=== PATIENT | female | born 1970 | race African-American/Black ===

== ENCOUNTER 2017-07-18 16:57 | Observation (INO) | payer OTHER ==
[~2017-07-18] VITALS: Ht 172.7 cm; Wt 90.7 kg
[2017-07-18] MEDS ORDERED: LORazepam 2MG/ML-1ML VIAL ONE (16:58)
[2017-07-18] MEDS ORDERED: LORazepam 2MG/ML-1ML VIAL IV ONE ×2 (17:15→18:45)
[2017-07-18] MEDS ORDERED: ETOMIDATE (2MG/ML) 20ML VIAL IV ONE (17:16)
[2017-07-18] MEDS ORDERED: ROCURONIUM 10MG/ML 10ML VIAL IV ONE (17:16)
[2017-07-18] MEDS ORDERED: SUCCINYLCHOLINE CHLORIDE 20 MG/ML 10ML VIAL IV ONE ×2 (17:16→18:30)
[2017-07-18] MEDS ORDERED: SODIUM CHLORIDE 0.9% 1,000 ML IVB ONE (17:19)
[2017-07-18] MEDS ORDERED: MIDAZOLAM DRIP 50 mg/50mL 50 ML IV ONE ×2 (17:26→18:12)
[2017-07-18] MEDS ORDERED: MIDAZOLAM HCL 5 MG/ML-1ML VIAL ONE (17:30)
[2017-07-18] MEDS ORDERED: PROPOFOL 100 ML IV ONE (17:43)
[2017-07-18 18:08] LABS: Basophils # (auto) 0.1 uL; Basophils % (auto) 0.5 % (0.0-2.0); Eosinophils # (auto) 0.1 uL; Eosinophils % (auto) 0.6 % (0.0-7.0); Hematocrit 41.6 % (36.0-46.0); Hemoglobin 12.9 g/dL (12.2-16.2); Lymphocytes # (auto) 4.1 uL; Lymphocytes % (auto) 35.2 % (10.0-50.0); Mean Corpuscular Hemoglobin 27.5 pg (28.0-32.0); Mean Corpuscular Hgb Conc. 31.1 g/dL (32.0-36.0); Mean Corpuscular Volume 88.5 fL (80.0-100.0); Monocytes # (auto) 0.7 uL; Monocytes % (auto) 6.2 % (0.0-12.0); Neutrophils # (auto) 6.7 uL; Neutrophils % (auto) 57.5 % (37.0-80.0); Nucleated Red Blood Cells % 0.1 %; Platelet Count (auto) 196 10^3/uL (140-450); Red Cell Distribution Width 14.6 % (11.8-14.3); White Blood Cell 11.7 10^3/uL (4.4-10.8)
[2017-07-18 18:21] LABS: Partial Thromboplastin Time 25.3 sec (22.64-33.71); Prothrombin Time 10.9 sec (9.37-12.3)
[2017-07-18 18:23] LABS: Magnesium 2.2 mg/dL (1.6-2.6)
[2017-07-18 18:26] LABS: Lactic Acid w/Reflex 9.3 mmol/L (0.4-2.0)
[2017-07-18 18:28] LABS: Albumin 4.3 g/dL (3.4-5.0); BUN/Creatinine Ratio 14.5; Bilirubin, Total 0.4 mg/dL (0.2-1.0); Calcium 8.5 mg/dL (8.5-10.1); Potassium 3.7 mmol/L (3.5-5.1)
[2017-07-18] MEDS ORDERED: MIDAZOLAM HCL 5 MG/ML-1ML VIAL IV ONE ×2 (18:30)
[2017-07-18] MEDS ORDERED: SODIUM CHLORIDE 0.9% 1,000 ML IV ONE (18:30)
[2017-07-18] MEDS ORDERED: MIDAZOLAM DRIP 50 mg/50mL 50 ML IV SCH (18:31)
[2017-07-18 18:32] LABS: Allen Test Modified; Base Excess -12.9 mmol/L (-2.0-2.0); Blood 02Sat 97.8 % (96-100); Blood MetHb 0.4 % (0.0-1.5); HCO3 15.1 mmol/L (22-26.0); HHb 2.2 % (0.0-5.0); MODE VENT - A/C; O2Hb 96.4 % (94.0-97.0); PCO2 43.2 mmHg (35.0-45.0); PCO2(T) 43.2 mmHg (35.0-45.0); PO2 146.1 mmHg (80.0-100.0); PO2(T) 146.1 mmHg (80.0-100.0); Sample Type Arterial; pH 7.162 (7.350-7.450)
[2017-07-18] MEDS ORDERED: PROPOFOL 100 ML IV SCH (18:32)
[2017-07-18 18:33] LABS: Urine Bilirubin Negative (Negative); Urine Blood 2+ /uL (Negative); Urine Color Yellow (Yellow); Urine Glucose Normal (Normal); Urine Hyaline Cast MOD /lpf (0 - 2); Urine Ketone Negative (Negative); Urine Mucus FEW (None Seen); Urine Nitrite Negative (Negative); Urine RBC 10 /hpf (0 - 4); Urine Squamous Epithelial Cell FEW /hpf (<5); Urine Urobilinogen Normal (Negative); Urine pH 5.5 (5.0-8.0)
[2017-07-18 18:34] LABS: REFLEX LACTIC ACID YES OR NO YES
[2017-07-18] MEDS ORDERED: LEVETIRACETAM 500 MG/5ML INJ IV ONE (18:36)
[2017-07-18 18:37] VITALS: BP 101/56
[2017-07-18] MEDS ORDERED: LEVETIRACETAM INJ 1,000 MG in SODIUM CHL 0.9% 100 ML IV ONE (18:45)
[2017-07-18] MEDS ORDERED: NOREPINEPHRINE 8 MG/250ML KIT 250 ML IV ONE (18:52)
[2017-07-18 19:28] LABS: Acetaminophen < 2.0 ug/mL (10-30); Salicylate 5.1 mg/dL (2.8-20.0)
== END 2017-07-18 19:07 | disposition short-term general hospital (02) | DRG 947 ==
LOC: ER 16:57 → OVERFLOW 17:21 → ER 19:07
PROVIDERS: ADMIT Family Medicine; ATTEND Family Medicine
DX: R41.82 Altered mental status, unspecified (principal); I63.9 Cerebral infarction, unspecified; I10 Essential (primary) hypertension; F17.200 Nicotine dependence, unspecified, uncomplicated
CPT/HCPCS: 36415; 36600; 70450; 71010; 80053; 80307; 80320; 80329; 81001; 82805; 83605; 83735; 84484; 84702; 85025; 85610; 85730; 87040; 87070; 87086; 87205; 93005; 94002; 96361; 96374; 96375; 96376; 99291; G0378; J0330; J1953; J2060; J2250; J2704

== ENCOUNTER 2024-03-29 12:21 | Emergency (ER) | payer MEDICAID ==
[~2024-03-29] VITALS: Ht 154.9 cm; Wt 96.8 kg
[2024-03-29 13:56] LABS: Basophils # (auto) 0 10 ^3/uL (0-0.2); Eosinophils # (auto) 0 10 ^3/uL (0-0.8); Lymphocytes # (auto) 1.1 10 ^3/uL (0.4-5.4); Monocytes # (auto) 0.2 10 ^3/uL (0-1.3)
[2024-03-29 13:57] LABS: Basophils % (auto) 0.5 % (0.0-2.0); Eosinophils % (auto) 0.7 % (0.0-7.0); Hematocrit 39.2 % (36.0-46.0); Lymphocytes % (auto) 29.7 % (10.0-50.0); Mean Corpuscular Hemoglobin 23.6 pg (28.0-32.0); Mean Corpuscular Hgb Conc. 30.8 g/dL (32.0-36.0); Mean Corpuscular Volume 76.6 fL (80.0-100.0); Monocytes % (auto) 5.9 % (0.0-12.0); Neutrophils # (auto) 2.4 10 ^3/uL (1.6-8.6); Neutrophils % (auto) 63.2 % (37.0-80.0); Nucleated Red Blood Cells % 0.1 %; Red Blood Cells 5.11 10^6/uL (4.0-5.20); Red Cell Distribution Width 18.5 % (11.8-14.3); White Blood Cell 3.8 10^3/uL (4.4-10.8)
[2024-03-29 14:20] LABS: Alanine Aminotransferase 12 U/L (7-40); Albumin 4.1 g/dL (3.2-4.8); Alkaline Phosphatase 65 U/L (46-116); Anion Gap 7 (5-15); Aspartate Aminotransferase 17 U/L (13-40); BUN/Creatinine Ratio 9.3 (10.0-20.0); Bilirubin, Total 0.4 mg/dL (0.2-1.0); Blood Urea Nitrogen 8 mg/dL (9-23); Calcium 9.2 mg/dL (8.5-10.1); Carbon Dioxide 28 mmol/L (20-30); Chloride 105 mmol/L (98-107); Glucose 83 mg/dL (74-106); Potassium 3.3 mmol/L (3.5-5.1); Sodium 140 mmol/L (136-145)
[2024-03-29 14:57] LABS: Magnesium 1.8 mg/dL (1.6-2.6)
[2024-03-29] MEDS: SODIUM CHLORIDE 0.9% 1,000 ML IV ONE ×2 (16:58→20:15)
[2024-03-29] MEDS: ONDANSETRON HCL 4 MG/2 ML VIAL IV ONE (16:58)
[2024-03-29] MEDS: hydrALAZINE HCL 20 MG/ML VL IV ONE (16:58)
[2024-03-29 18:24] VITALS: BP 152/99; PULSE 84; RESP 17; TEMP 98.4; O2SAT 98
[2024-03-29] MEDS: POTASSIUM CHL 20 Meq TABLET PO ONE (18:24)
[2024-03-29 19:33] LABS: Urine Bacteria FEW /hpf (None Seen); Urine Blood Negative /uL (Negative); Urine Clarity Turbid (Clear); Urine Color Yellow (Yellow); Urine Mucus FEW (None Seen); Urine Protein, UAD 1+ (Negative); Urine Urobilinogen 6 mg/dL (Negative); Urine WBC 2 /hpf (0 - 5)
== END 2024-03-29 20:15 | disposition home or self-care (01) ==
LOC: ER 12:21
DX: I10 Essential (primary) hypertension (principal); K59.00 Constipation, unspecified; R11.2 Nausea with vomiting, unspecified; E78.5 Hyperlipidemia, unspecified; F32.9 Major depressive disorder, single episode, unspecified; Z98.890 Other specified postprocedural states; Z79.899 Other long term (current) drug therapy
CPT/HCPCS: 36415; 74176; 80053; 81001; 83605; 83690; 83735; 85025; 93005; 96361; 96374; 96375; 99285; J0360; J2405; J7030

== ENCOUNTER 2024-06-23 10:42 | Inpatient (IN) | payer MEDICAID ==
[~2024-06-23] VITALS: Ht 154.9 cm; Wt 93.3 kg
[2024-06-23] MEDS: SODIUM CHLORIDE 0.9% 1,000 ML IV ONE ×2 (11:00→12:25)
[2024-06-23 11:33] LABS: Basophils # (auto) 0 10 ^3/uL (0-0.2); Eosinophils # (auto) 0 10 ^3/uL (0-0.8); Eosinophils % (auto) 0.2 % (0.0-7.0); Monocytes # (auto) 0.2 10 ^3/uL (0-1.3); Neutrophils # (auto) 2.5 10 ^3/uL (1.6-8.6)
[2024-06-23 11:35] LABS: Basophils % (auto) 0.4 % (0.0-2.0); Hematocrit 38.7 % (36.0-46.0); Hemoglobin 12.4 g/dL (12.2-16.2); Lymphocytes # (auto) 1.3 10 ^3/uL (0.4-5.4); Lymphocytes % (auto) 32.3 % (10.0-50.0); Mean Corpuscular Hemoglobin 23.4 pg (28.0-32.0); Mean Corpuscular Volume 73.3 fL (80.0-100.0); Monocytes % (auto) 5.5 % (0.0-12.0); Neutrophils % (auto) 61.6 % (37.0-80.0); Nucleated Red Blood Cells % 0.2 %; Platelet Count (auto) 215 10^3/uL (140-450); Red Blood Cells 5.28 10^6/uL (4.0-5.20); Red Cell Distribution Width 17.7 % (11.8-14.3)
[2024-06-23 11:40] LABS: Chloride 103 mmol/L (98-107); Sodium 140 mmol/L (136-145)
[2024-06-23 11:41] LABS: Anion Gap 12 (5-15); Carbon Dioxide 25 mmol/L (20-31)
[2024-06-23 11:42] LABS: Calcium 9.4 mg/dL (8.7-10.4)
[2024-06-23 11:46] LABS: BUN/Creatinine Ratio 8.8 (10.0-20.0); Blood Urea Nitrogen 8 mg/dL (9-23); Glucose 90 mg/dL (74-106)
[2024-06-23 11:49] LABS: Potassium 2.2 mmol/L (3.5-5.1)
[2024-06-23] MEDS: ONDANSETRON HCL 4 MG/2 ML VIAL IV ONE (12:00)
[2024-06-23 12:04] VITALS: PULSE 80; RESP 14; O2SAT 99
[2024-06-23] MEDS: hydrALAZINE HCL 20 MG/ML VL IV ONE (12:48)
[2024-06-23] MEDS: POTASSIUM CHL 20MEQ/100ML 100 ML IV SCH (12:55)
[2024-06-23] MEDS ORDERED: MORPHINE SULFATE INJ 2 MG/ml SYRG IV PRN (15:30)
[2024-06-23] MEDS ORDERED: hydrALAZINE HCL 20 MG/ML VL IV PRN (15:30)
[2024-06-23] MEDS ORDERED: SODIUM CHLORIDE 0.9% 1,000 ML IV SCH (15:30)
[2024-06-23] MEDS ORDERED: DOCUSATE SOD 100 MG CAP PO PRN (15:30)
[2024-06-23] MEDS ORDERED: ONDANSETRON HCL 4 MG/2 ML VIAL IV PRN (15:30)
[2024-06-23] MEDS ORDERED: NITROGLYCERIN 0.4 MG SL TAB SL PRN ×2 (15:30→15:45)
[2024-06-23] MEDS ORDERED: METOCLOPRAMIDE HCL 5MG/ml INJ 2ml VIAL IV ONE (15:30)
[2024-06-23] MEDS ORDERED: ENOXAPARIN SOD 40 MG/0.4 ML SYRINGE SC SCH (15:30)
[2024-06-23] MEDS: SODIUM CHLORIDE 0.9% 1,000 ML IV SCH (15:45)
[2024-06-23 15:46] LABS: Urine Bacteria None Seen /hpf (None Seen)
[2024-06-23 15:58] LABS: Magnesium 1.6 mg/dL (1.6-2.6)
[2024-06-23 15:59] LABS: Phosphorus 2.8 mg/dL (2.4-5.1)
[2024-06-23 16:03] LABS: Potassium 2.3 mmol/L (3.5-5.1)
[2024-06-23 16:15] LABS: Amphetamine Screen, Urine Neg (NEGATIVE); Barbiturate Scree,Urine Neg (NEGATIVE)
[2024-06-23 16:16] LABS: Benzodiazephine Screen, Urine Pos (NEGATIVE); Cannabinoid Screen, Urine Pos (NEGATIVE); Cocaine Screen, Urine Neg (NEGATIVE); Opiate Scree,Urine Neg (NEGATIVE); Phencyclidine Screen, Urine Neg (NEGATIVE)
[2024-06-23 16:18] LABS: Urine Blood Negative /uL (Negative); Urine Clarity Clear (Clear); Urine Color Yellow (Yellow); Urine Mucus FEW (None Seen); Urine Protein, UAD 1+ (Negative); Urine Specific Gravity 1.022 (1.001-1.035); Urine Urobilinogen 6 mg/dL (Negative); Urine WBC 1 /hpf (0 - 5); Urine pH 6.5 (5.0-9.0)
[2024-06-23] MEDS: POTASSIUM CHL 20MEQ/100ML 100 ML IV ONE (16:38)
[2024-06-23] MEDS: METOCLOPRAMIDE HCL 5MG/ml INJ 2ml VIAL IV ONE (16:47)
[2024-06-23] MEDS ORDERED: METOCLOPRAMIDE HCL 5MG/ml INJ 2ml VIAL IV SCH (18:00)
[2024-06-23] MEDS: METOCLOPRAMIDE HCL 5MG/ml INJ 2ml VIAL IV SCH (18:57)
[2024-06-23] MEDS: ONDANSETRON HCL 4 MG/2 ML VIAL IV PRN (20:52)
[2024-06-23 22:28] VITALS: PULSE 84; RESP 14; O2SAT 99
[2024-06-24] VITALS (13 sets, daily range): BP systolic 147–179; BP diastolic 83–113; PULSE 68–118; RESP 14–20; TEMP 98–98.9; O2SAT 95–100
[2024-06-24] MEDS: hydrALAZINE HCL 20 MG/ML VL IV PRN (04:30)
[2024-06-24] MEDS ORDERED: ZOFR4T PO (04:32)
[2024-06-24] MEDS ORDERED: [UNRECOGNIZED DRUG - CODE] IV (04:32)
[2024-06-24] MEDS ORDERED: HYDR50TA47 PO (04:32)
[2024-06-24] MEDS ORDERED: OXY5T GT (04:32)
[2024-06-24] MEDS: ENOXAPARIN SOD 40 MG/0.4 ML SYRINGE SC SCH (11:31)
[2024-06-24] MEDS ORDERED: CYCL-611 PO (12:41)
[2024-06-24] MEDS ORDERED: METH-1182 PO (12:41)
[2024-06-24] MEDS ORDERED: OXYC325T14 PO (12:50)
[2024-06-24] MEDS ORDERED: GABA-1250 PO (12:50)
[2024-06-24] MEDS ORDERED: CONJ.6252 PO (12:50)
[2024-06-24] MEDS ORDERED: IBUP-1456 PO (12:50)
[2024-06-24] MEDS ORDERED: NALO1TAB4 PO (12:50)
[2024-06-24] MEDS ORDERED: CITA10TA8 PO (12:50)
[2024-06-24] MEDS ORDERED: DOCU-265 PO (12:50)
[2024-06-24] MEDS ORDERED: NORT50CA57 PO (12:50)
[2024-06-24] MEDS ORDERED: SERT-160 PO (12:50)
[2024-06-24] MEDS ORDERED: ATOR20TA50 PO (12:50)
[2024-06-24] MEDS ORDERED: TOLT2CAP PO (12:50)
[2024-06-24] MEDS ORDERED: ZOLP10TA6 PO (12:50)
[2024-06-24] MEDS ORDERED: AMLO1TAB23 PO (12:50)
[2024-06-24] MEDS: MORPHINE SULFATE INJ 2 MG/ml SYRG IV PRN (13:25)
[2024-06-24 14:12] LABS: Basophils # (auto) 0 10 ^3/uL (0-0.2); Eosinophils # (auto) 0 10 ^3/uL (0-0.8)
[2024-06-24 14:16] LABS: Basophils % (auto) 0.1 % (0.0-2.0); Eosinophils % (auto) 0.1 % (0.0-7.0); Hematocrit 41.2 % (36.0-46.0); Hemoglobin 12.3 g/dL (12.2-16.2); Lymphocytes # (auto) 1.1 10 ^3/uL (0.4-5.4); Mean Corpuscular Hemoglobin 23.2 pg (28.0-32.0); Mean Corpuscular Hgb Conc. 29.9 g/dL (32.0-36.0); Mean Corpuscular Volume 77.7 fL (80.0-100.0); Monocytes # (auto) 0.4 10 ^3/uL (0-1.3); Neutrophils # (auto) 4.4 10 ^3/uL (1.6-8.6); Neutrophils % (auto) 75.8 % (37.0-80.0); Nucleated Red Blood Cells % 0.2 %; Platelet Count (auto) 177 10^3/uL (140-450); Red Blood Cells 5.31 10^6/uL (4.0-5.20); Red Cell Distribution Width 18.5 % (11.8-14.3); White Blood Cell 5.9 10^3/uL (4.4-10.8)
[2024-06-24 14:19] LABS: Alanine Aminotransferase 51 U/L (7-40); Alkaline Phosphatase 44 U/L (46-116); Anion Gap 15 (5-15); Blood Urea Nitrogen 5 mg/dL (9-23); Calcium 9.2 mg/dL (8.7-10.4); Carbon Dioxide 16 mmol/L (20-31); Chloride 109 mmol/L (98-107); Glucose 94 mg/dL (74-106); Potassium 3.1 mmol/L (3.5-5.1); Sodium 140 mmol/L (136-145)
[2024-06-24 14:20] LABS: Albumin 4.1 g/dL (3.2-4.8); Aspartate Aminotransferase 90 U/L (13-40); Bilirubin, Total 0.6 mg/dL (0.2-1.0); Total Protein 6.8 g/dL (5.7-8.2)
[2024-06-24] MEDS: POTASSIUM CHL 20MEQ/100ML 100 ML IV SCH (18:41)
[2024-06-24] MEDS: LABETALOL HCL 20 MG/4 ML VL IV PRN (23:54)
[2024-06-25] VITALS (10 sets, daily range): BP systolic 148–184; BP diastolic 86–114; PULSE 58–111; RESP 14–20; TEMP 97.1–98.6; O2SAT 93–100
[2024-06-25] MEDS: FLEET ENEMA(ADULT) 135 ML PR ONE (06:11)
[2024-06-26] VITALS (10 sets, daily range): BP systolic 176–203; BP diastolic 100–108; PULSE 70–112; RESP 14–20; TEMP 97.3–98.4; O2SAT 98–100
[2024-06-26] MEDS: DOCUSATE SOD 100 MG CAP PO PRN (14:44)
[2024-06-26] MEDS: PROCHLORPERAZINE EDISYLATE 5 MG/ML 2ML VIAL IV PRN (17:39)
[2024-06-27] VITALS (8 sets, daily range): BP systolic 141–186; BP diastolic 71–114; PULSE 63–100; RESP 16–20; TEMP 97.8–98.5; O2SAT 99–100
[2024-06-27 15:10] LABS: Chloride 104 mmol/L (98-107); Potassium 3.2 mmol/L (3.5-5.1); Sodium 138 mmol/L (136-145)
[2024-06-27 15:11] LABS: Anion Gap 12 (5-15); Calcium 9.7 mg/dL (8.7-10.4); Carbon Dioxide 22 mmol/L (20-31)
[2024-06-27 15:16] LABS: BUN/Creatinine Ratio 16.1 (10.0-20.0); Blood Urea Nitrogen 15 mg/dL (9-23); Glucose 153 mg/dL (74-106)
[2024-06-27] MEDS: MELATONIN 5 MG TAB PO SCH (22:26)
[2024-06-28] VITALS (10 sets, daily range): BP systolic 127–192; BP diastolic 91–113; PULSE 63–121; RESP 17–20; TEMP 36.6; O2SAT 92–100
[2024-06-28] MEDS ORDERED: ZOFR4T PO (12:21)
[2024-06-28] MEDS ORDERED: OMEP-434 PO (12:21)
[2024-06-29] VITALS (7 sets, daily range): BP systolic 168–186; BP diastolic 93–108; PULSE 68–108; RESP 16–24; TEMP 97.6–98.3; O2SAT 90–100
[2024-06-29 09:20] LABS: Basophils # (auto) 0 10 ^3/uL (0-0.2); Basophils % (auto) 0.2 % (0.0-2.0); Eosinophils # (auto) 0 10 ^3/uL (0-0.8); Eosinophils % (auto) 0.3 % (0.0-7.0); Hematocrit 40.6 % (36.0-46.0); Hemoglobin 12.4 g/dL (12.2-16.2); Lymphocytes # (auto) 1.8 10 ^3/uL (0.4-5.4); Lymphocytes % (auto) 35.9 % (10.0-50.0); Mean Corpuscular Hemoglobin 22.9 pg (28.0-32.0); Mean Corpuscular Hgb Conc. 30.6 g/dL (32.0-36.0); Mean Corpuscular Volume 74.9 fL (80.0-100.0); Monocytes # (auto) 0.3 10 ^3/uL (0-1.3); Monocytes % (auto) 5.3 % (0.0-12.0); Neutrophils % (auto) 58.3 % (37.0-80.0); Nucleated Red Blood Cells % 0.5 %; Platelet Count (auto) 191 10^3/uL (140-450); Red Blood Cells 5.42 10^6/uL (4.0-5.20); Red Cell Distribution Width 18.3 % (11.8-14.3); White Blood Cell 5.1 10^3/uL (4.4-10.8)
[2024-06-29 09:38] LABS: Alanine Aminotransferase 45 U/L (7-40); Albumin 4.2 g/dL (3.2-4.8); Alkaline Phosphatase 44 U/L (46-116); Anion Gap 13 (5-15); Aspartate Aminotransferase 49 U/L (13-40); BUN/Creatinine Ratio 16.5 (10.0-20.0); Blood Urea Nitrogen 13 mg/dL (9-23); Calcium 9.4 mg/dL (8.7-10.4); Carbon Dioxide 20 mmol/L (20-31); Chloride 105 mmol/L (98-107); Glucose 124 mg/dL (74-106); Potassium 3.1 mmol/L (3.5-5.1); Sodium 138 mmol/L (136-145)
[2024-06-29 09:39] LABS: Bilirubin, Total 0.6 mg/dL (0.2-1.0); Total Protein 6.7 g/dL (5.7-8.2)
[2024-06-29] MEDS: POTASSIUM EFFERVESENT TAB 25 MEQ GT ONE (15:17)
[2024-06-29] MEDS: SERTRALINE HCL 50 MG TAB PO ONE (15:28)
[2024-06-30] VITALS (9 sets, daily range): BP systolic 128–191; BP diastolic 86–111; PULSE 82–108; RESP 16–20; TEMP 97–97.9; O2SAT 96–100
[2024-06-30] MEDS: SERTRALINE HCL 50 MG TAB PO SCH (10:37)
[2024-07-01 01:00] VITALS: BP 131/84; PULSE 87; RESP 16; TEMP 97.6; O2SAT 100
[2024-07-01 05:00] VITALS: BP 189/111; PULSE 89; RESP 16; TEMP 97.6; O2SAT 97
[2024-07-01 08:00] VITALS: PULSE 82; PULSE 90; RESP 16
[2024-07-01 08:48] VITALS: BP 130/81; PULSE 74; RESP 15; TEMP 98.5; O2SAT 90
[2024-07-01] MEDS: LACTULOSE 20Gm/30ML SOLN PO SCH (10:03)
[2024-07-01 13:00] VITALS: BP 114/70; PULSE 88; RESP 15; TEMP 97.9; O2SAT 100
[2024-07-01 17:00] VITALS: BP 159/92; PULSE 102; RESP 15; TEMP 98; O2SAT 100
== END 2024-07-01 18:38 | DRG 254 ==
LOC: ER 10:42 → EDBD 10:42 → TELE 15:19 → ER 15:37 → TELE-EAST 06-24 03:58
PROVIDERS: ADMIT Nurse Practitioner Family; ATTEND Family Medicine
PROC: 05HC33Z Insertion of Infusion Device into Left Basilic Vein, Percutaneous Approach (ICD-10-PCS; principal; 2024-06-24)
PROC: B54NZZA Ultrasonography of Left Upper Extremity Veins, Guidance (ICD-10-PCS; 2024-06-24)
DX: K59.00 Constipation, unspecified (principal); D72.819 Decreased white blood cell count, unspecified; E86.0 Dehydration; E87.6 Hypokalemia; E78.00 Pure hypercholesterolemia, unspecified; I16.1 Hypertensive emergency; F32.A Depression, unspecified; I10 Essential (primary) hypertension; G40.909 Epilepsy, unspecified, not intractable, without status epilepticus; G31.84 Mild cognitive impairment of uncertain or unknown etiology; Z79.899 Other long term (current) drug therapy; R11.2 Nausea with vomiting, unspecified
CPT/HCPCS: 36415; 74176; 80048; 80053; 80307; 81001; 81025; 83690; 83735; 84100; 84132; 85025; 97110; 97116; 97163; 97530; G0378; J2405; J3480